=== PATIENT | male | born 1955 | race African-American/Black ===

== ENCOUNTER 2020-05-27 09:45 | Inpatient (IN) | payer OTHER ==
[2020-05-27 10:20] VITALS: BMI 25.7
[2020-05-27] MEDS ORDERED: NICOTINE POLACRILEX 2 MG GUM BC PRN (15:07)
[2020-05-27] MEDS ORDERED: LOPERAMIDE HCL 2 MG CAPSULE PO PRN (15:07)
[2020-05-27] MEDS ORDERED: MAGNESIUM HYDROX 2400MG/30ML ORAL SUSPENSION 30 ML CUP PO PRN (15:07)
[2020-05-27] MEDS ORDERED: P-EPHED 60MG/TRIPROLIDI 2.5MG TABLET PO PRN (15:07)
[2020-05-27] MEDS ORDERED: guaiFENesin 200 MG/10 ML 10 ML UNIT-DOSE CUPS PO PRN (15:07)
[2020-05-27] MEDS ORDERED: MAGNESIUM CITRATE 300 ML BOTTLE PO PRN (15:07)
[2020-05-27] MEDS ORDERED: ACETAMINOPHEN 325 MG TABLET (FP) PO PRN (15:07)
[2020-05-27 17:03] LABS: HEMATOCRIT 42.2 % (35.4-49); MCH 29.3 pg (25.7-33.7); MCHC 33.1 g/dl (32.0-35.9); MEAN CELL VOLUME 88.7 fl (80-96); MEAN PLT VOLUME 7.6 fl (7.5-11.1); PLATELET COUNT 249 K/MM3 (134-434); RBC 4.76 M/mm3 (4.00-5.60); RDW 15.3 % (11.9-15.9); WHITE BLOOD COUNT 4.8 K/mm3 (4.0-10.0)
[2020-05-27 17:07] LABS: POTASSIUM 4.3 mmol/L (3.5-5.1)
[2020-05-27 17:10] LABS: ALBUMIN 3.8 g/dl (3.4-5.0); CALCIUM 9.4 mg/dL (8.5-10.1)
[2020-05-27 17:11] LABS: BLOOD UREA NITROGEN 13.6 mg/dL (7-18)
[2020-05-27 17:15] LABS: BILIRUBIN,TOTAL 1.1 mg/dL (0.2-1); TOT PROT 7.7 g/dl (6.4-8.2)
[2020-05-27 18:12] LABS: SICKLE CELL SCREEN NEGATIVE (NEGATIVE)
[2020-05-27] MEDS: hydrOXYzine PAMOATE 25 MG CAPSULE (FP) PO SCH ×2 (19:15→21:30)
[2020-05-27] MEDS: levETIRAcetam 500 MG TABLET (FP) PO SCH (21:30)
[2020-05-27] MEDS: MELATONIN 5 MG TABLETS PO SCH (21:30)
[2020-05-27] MEDS: THIAMINE HCL 100 MG TABLET (FP) PO SCH (21:30)
[2020-05-28] MEDS: hydrOXYzine PAMOATE 25 MG CAPSULE (FP) PO SCH ×3 (06:23→14:39)
[2020-05-28] MEDS: NICOTINE 14 MG/24 HOURS TOPICAL PATCH TD SCH (10:03)
[2020-05-28] MEDS: levETIRAcetam 500 MG TABLET (FP) PO SCH ×2 (10:03→21:48)
[2020-05-28] MEDS: PRENATAL VITAMINS W/ FOLIC ACID TABLET (FP) PO SCH (10:03)
[2020-05-28] MEDS: amLODIPine BESYLATE 10 MG TABLET (FP) PO SCH (10:03)
[2020-05-28] MEDS: MELATONIN 5 MG TABLETS PO SCH (21:46)
[2020-05-28] MEDS: THIAMINE HCL 100 MG TABLET (FP) PO SCH (21:46)
[2020-05-28] MEDS: hydrOXYzine PAMOATE 25 MG CAPSULE (FP) PO PRN (21:47)
[2020-05-29] MEDS: PRENATAL VITAMINS W/ FOLIC ACID TABLET (FP) PO SCH (10:40)
[2020-05-29] MEDS: NICOTINE 14 MG/24 HOURS TOPICAL PATCH TD SCH (10:40)
[2020-05-29] MEDS: levETIRAcetam 500 MG TABLET (FP) PO SCH ×2 (10:40→22:04)
[2020-05-29] MEDS: amLODIPine BESYLATE 10 MG TABLET (FP) PO SCH (10:40)
[2020-05-29] MEDS: IBUPROFEN 400 MG TABLET (FP) PO PRN (10:43)
[2020-05-29] MEDS: hydrOXYzine PAMOATE 25 MG CAPSULE (FP) PO PRN ×2 (10:45→22:04)
[2020-05-29] MEDS ORDERED: ONDANSETRON *ODT* 4 MG TABLET SL ONE (15:01)
[2020-05-29] MEDS ORDERED: TRIMETHOBENZAMIDE HCL 200MG/2ML INJ IM ONE (15:49)
[2020-05-29] MEDS: cloNIDine HCL 0.1 MG TABLET PO PRN (17:41)
[2020-05-29] MEDS: METHOCARBAMOL 500 MG TABLET PO PRN ×2 (17:41→22:04)
[2020-05-29] MEDS: MELATONIN 5 MG TABLETS PO SCH (22:04)
[2020-05-29] MEDS: THIAMINE HCL 100 MG TABLET (FP) PO SCH (22:04)
[2020-05-30] MEDS: cloNIDine HCL 0.1 MG TABLET PO PRN ×2 (07:19→21:59)
[2020-05-30] MEDS: levETIRAcetam 500 MG TABLET (FP) PO SCH ×2 (10:30→21:59)
[2020-05-30] MEDS: PRENATAL VITAMINS W/ FOLIC ACID TABLET (FP) PO SCH (10:30)
[2020-05-30] MEDS: amLODIPine BESYLATE 10 MG TABLET (FP) PO SCH (10:30)
[2020-05-30] MEDS: IBUPROFEN 400 MG TABLET (FP) PO PRN (10:31)
[2020-05-30] MEDS: hydrOXYzine PAMOATE 25 MG CAPSULE (FP) PO PRN (10:32)
[2020-05-30] MEDS: METHOCARBAMOL 500 MG TABLET PO PRN ×2 (10:32→21:59)
[2020-05-30] MEDS: NICOTINE 14 MG/24 HOURS TOPICAL PATCH TD SCH (10:32)
[2020-05-30 12:13] LABS: POTASSIUM 3.7 mmol/L (3.5-5.1)
[2020-05-30 12:18] LABS: ALBUMIN 3.9 g/dl (3.4-5.0); CALCIUM 9.9 mg/dL (8.5-10.1)
[2020-05-30 12:21] LABS: CREATININE 0.9 mg/dL (0.55-1.3)
[2020-05-30 12:24] LABS: BILIRUBIN,TOTAL 1.2 mg/dL (0.2-1); TOT PROT 8.8 g/dl (6.4-8.2)
[2020-05-30] MEDS ORDERED: ONDANSETRON *ODT* 4 MG TABLET SL PRN (12:54)
[2020-05-30] MEDS: hydrOXYzine PAMOATE 50 MG CAPSULE (FP) PO PRN (21:59)
[2020-05-30] MEDS: THIAMINE HCL 100 MG TABLET (FP) PO SCH (21:59)
[2020-05-30] MEDS: MELATONIN 5 MG TABLETS PO SCH (21:59)
[2020-05-31] MEDS: PRENATAL VITAMINS W/ FOLIC ACID TABLET (FP) PO SCH (10:58)
[2020-05-31] MEDS: NICOTINE 14 MG/24 HOURS TOPICAL PATCH TD SCH (10:58)
[2020-05-31] MEDS: amLODIPine BESYLATE 10 MG TABLET (FP) PO SCH (10:58)
[2020-05-31] MEDS: levETIRAcetam 500 MG TABLET (FP) PO SCH ×2 (10:59→21:28)
[2020-05-31] MEDS: MELATONIN 5 MG TABLETS PO SCH (21:27)
[2020-05-31] MEDS: METHOCARBAMOL 500 MG TABLET PO PRN (21:28)
[2020-05-31] MEDS: hydrOXYzine PAMOATE 50 MG CAPSULE (FP) PO PRN (21:28)
[2020-05-31] MEDS: cloNIDine HCL 0.1 MG TABLET PO PRN (21:28)
[2020-05-31] MEDS: THIAMINE HCL 100 MG TABLET (FP) PO SCH (21:28)
[2020-05-31 23:38] LABS: URINE APPEARANCE CLEAR; URINE BILIRUBIN NEGATIVE (NEGATIVE); URINE COLOR DK YELLOW; URINE GLUCOSE (UA) NEGATIVE (NEGATIVE); URINE KETONE NEGATIVE (NEGATIVE); URINE LEUK ESTERASE NEGATIVE (NEGATIVE); URINE NITRITE NEGATIVE (NEGATIVE); URINE PROTEIN TRACE (NEGATIVE)
[2020-06-01] MEDS: levETIRAcetam 500 MG TABLET (FP) PO SCH ×2 (10:31→21:33)
[2020-06-01] MEDS: NICOTINE 14 MG/24 HOURS TOPICAL PATCH TD SCH (10:31)
[2020-06-01] MEDS: PRENATAL VITAMINS W/ FOLIC ACID TABLET (FP) PO SCH (10:31)
[2020-06-01] MEDS: amLODIPine BESYLATE 10 MG TABLET (FP) PO SCH (10:31)
[2020-06-01] MEDS: cloNIDine HCL 0.1 MG TABLET PO PRN (21:33)
[2020-06-01] MEDS: hydrOXYzine PAMOATE 50 MG CAPSULE (FP) PO PRN (21:33)
[2020-06-01] MEDS: MELATONIN 5 MG TABLETS PO SCH (21:33)
[2020-06-01] MEDS: THIAMINE HCL 100 MG TABLET (FP) PO SCH (21:33)
[2020-06-01] MEDS: METHOCARBAMOL 500 MG TABLET PO PRN (21:33)
[2020-06-02] MEDS: levETIRAcetam 500 MG TABLET (FP) PO SCH ×2 (10:01→21:09)
[2020-06-02] MEDS: amLODIPine BESYLATE 10 MG TABLET (FP) PO SCH (10:01)
[2020-06-02] MEDS: NICOTINE 14 MG/24 HOURS TOPICAL PATCH TD SCH (10:03)
[2020-06-02] MEDS: PRENATAL VITAMINS W/ FOLIC ACID TABLET (FP) PO SCH (10:03)
[2020-06-02] MEDS: THIAMINE HCL 100 MG TABLET (FP) PO SCH (21:09)
[2020-06-02] MEDS: MELATONIN 5 MG TABLETS PO SCH (21:09)
[2020-06-02] MEDS: hydrOXYzine PAMOATE 50 MG CAPSULE (FP) PO PRN (21:10)
[2020-06-03] MEDS: amLODIPine BESYLATE 10 MG TABLET (FP) PO SCH (09:03)
[2020-06-03] MEDS: levETIRAcetam 500 MG TABLET (FP) PO SCH ×2 (09:03→21:33)
[2020-06-03] MEDS: PRENATAL VITAMINS W/ FOLIC ACID TABLET (FP) PO SCH (09:03)
[2020-06-03] MEDS: MAG HYDROX/AL HYDROX/SIMETH 30 ML UNIT-DOSE CUP PO PRN (09:04)
[2020-06-03] MEDS: NICOTINE 14 MG/24 HOURS TOPICAL PATCH TD SCH (09:08)
[2020-06-03] MEDS: hydrOXYzine PAMOATE 50 MG CAPSULE (FP) PO PRN (21:33)
[2020-06-03] MEDS: THIAMINE HCL 100 MG TABLET (FP) PO SCH (21:33)
[2020-06-03] MEDS: MELATONIN 5 MG TABLETS PO SCH (21:33)
[2020-06-03] MEDS: METHOCARBAMOL 500 MG TABLET PO PRN (21:33)
[2020-06-04] MEDS: amLODIPine BESYLATE 10 MG TABLET (FP) PO SCH (09:11)
[2020-06-04] MEDS: MAG HYDROX/AL HYDROX/SIMETH 30 ML UNIT-DOSE CUP PO PRN (09:11)
[2020-06-04] MEDS: NICOTINE 14 MG/24 HOURS TOPICAL PATCH TD SCH (09:11)
[2020-06-04] MEDS: levETIRAcetam 500 MG TABLET (FP) PO SCH ×2 (09:11→21:10)
[2020-06-04] MEDS: PRENATAL VITAMINS W/ FOLIC ACID TABLET (FP) PO SCH (09:11)
[2020-06-04] MEDS: METHOCARBAMOL 500 MG TABLET PO PRN (21:10)
[2020-06-04] MEDS: MELATONIN 5 MG TABLETS PO SCH (21:11)
[2020-06-04] MEDS: THIAMINE HCL 100 MG TABLET (FP) PO SCH (21:11)
[2020-06-04] MEDS: cloNIDine HCL 0.1 MG TABLET PO PRN (21:11)
[2020-06-04] MEDS: hydrOXYzine PAMOATE 50 MG CAPSULE (FP) PO PRN (21:11)
[2020-06-05] MEDS: NICOTINE 14 MG/24 HOURS TOPICAL PATCH TD SCH (09:10)
[2020-06-05] MEDS: levETIRAcetam 500 MG TABLET (FP) PO SCH ×2 (09:10→21:27)
[2020-06-05] MEDS: PRENATAL VITAMINS W/ FOLIC ACID TABLET (FP) PO SCH (09:11)
[2020-06-05] MEDS: amLODIPine BESYLATE 10 MG TABLET (FP) PO SCH (09:11)
[2020-06-05] MEDS: THIAMINE HCL 100 MG TABLET (FP) PO SCH (21:27)
[2020-06-05] MEDS: METHOCARBAMOL 500 MG TABLET PO PRN (21:27)
[2020-06-05] MEDS: hydrOXYzine PAMOATE 50 MG CAPSULE (FP) PO PRN (21:27)
[2020-06-05] MEDS: cloNIDine HCL 0.1 MG TABLET PO PRN (21:27)
[2020-06-05] MEDS: MELATONIN 5 MG TABLETS PO SCH (21:28)
[2020-06-06] MEDS: PRENATAL VITAMINS W/ FOLIC ACID TABLET (FP) PO SCH (10:08)
[2020-06-06] MEDS: amLODIPine BESYLATE 10 MG TABLET (FP) PO SCH (10:08)
[2020-06-06] MEDS: levETIRAcetam 500 MG TABLET (FP) PO SCH ×2 (10:08→21:49)
[2020-06-06] MEDS: NICOTINE 14 MG/24 HOURS TOPICAL PATCH TD SCH (10:08)
[2020-06-06] MEDS: METHOCARBAMOL 500 MG TABLET PO PRN (21:49)
[2020-06-06] MEDS: THIAMINE HCL 100 MG TABLET (FP) PO SCH (21:49)
[2020-06-06] MEDS: MELATONIN 5 MG TABLETS PO SCH (21:50)
[2020-06-07] MEDS: amLODIPine BESYLATE 10 MG TABLET (FP) PO SCH (09:55)
[2020-06-07] MEDS: NICOTINE 14 MG/24 HOURS TOPICAL PATCH TD SCH (09:55)
[2020-06-07] MEDS: PRENATAL VITAMINS W/ FOLIC ACID TABLET (FP) PO SCH (09:55)
[2020-06-07] MEDS: levETIRAcetam 500 MG TABLET (FP) PO SCH ×2 (09:55→22:09)
[2020-06-07 11:13] LABS: POTASSIUM 4.3 mmol/L (3.5-5.1)
[2020-06-07 11:18] LABS: CALCIUM 8.9 mg/dL (8.5-10.1)
[2020-06-07 11:19] LABS: ALBUMIN 3.3 g/dl (3.4-5.0); BLOOD UREA NITROGEN 11.3 mg/dL (7-18)
[2020-06-07 11:22] LABS: CREATININE 0.9 mg/dL (0.55-1.3)
[2020-06-07 11:23] LABS: BILIRUBIN,TOTAL 0.5 mg/dL (0.2-1)
[2020-06-07 11:39] LABS: TOT PROT 6.7 g/dl (6.4-8.2)
[2020-06-07] MEDS: THIAMINE HCL 100 MG TABLET (FP) PO SCH (22:09)
[2020-06-07] MEDS: MELATONIN 5 MG TABLETS PO SCH (22:09)
[2020-06-08] MEDS: NICOTINE 14 MG/24 HOURS TOPICAL PATCH TD SCH (10:05)
[2020-06-08] MEDS: PRENATAL VITAMINS W/ FOLIC ACID TABLET (FP) PO SCH (10:05)
[2020-06-08] MEDS: amLODIPine BESYLATE 10 MG TABLET (FP) PO SCH (10:06)
[2020-06-08] MEDS: levETIRAcetam 500 MG TABLET (FP) PO SCH ×2 (10:06→21:17)
[2020-06-08] MEDS: MELATONIN 5 MG TABLETS PO SCH (21:17)
[2020-06-08] MEDS: hydrOXYzine PAMOATE 50 MG CAPSULE (FP) PO PRN (21:17)
[2020-06-08] MEDS: METHOCARBAMOL 500 MG TABLET PO PRN (21:17)
[2020-06-08] MEDS: THIAMINE HCL 100 MG TABLET (FP) PO SCH (21:17)
[2020-06-08] MEDS: cloNIDine HCL 0.1 MG TABLET PO PRN (21:17)
[2020-06-09] MEDS: PRENATAL VITAMINS W/ FOLIC ACID TABLET (FP) PO SCH (09:02)
[2020-06-09] MEDS: amLODIPine BESYLATE 10 MG TABLET (FP) PO SCH (09:02)
[2020-06-09] MEDS: levETIRAcetam 500 MG TABLET (FP) PO SCH ×2 (09:02→21:35)
[2020-06-09] MEDS: NICOTINE 14 MG/24 HOURS TOPICAL PATCH TD SCH (09:03)
[2020-06-09] MEDS: THIAMINE HCL 100 MG TABLET (FP) PO SCH (21:35)
[2020-06-09] MEDS: METHOCARBAMOL 500 MG TABLET PO PRN (21:35)
[2020-06-09] MEDS: hydrOXYzine PAMOATE 50 MG CAPSULE (FP) PO PRN (21:35)
[2020-06-09] MEDS: MELATONIN 5 MG TABLETS PO SCH (21:35)
[2020-06-09] MEDS: cloNIDine HCL 0.1 MG TABLET PO PRN (21:35)
[2020-06-10] MEDS: amLODIPine BESYLATE 10 MG TABLET (FP) PO SCH (10:01)
[2020-06-10] MEDS: PRENATAL VITAMINS W/ FOLIC ACID TABLET (FP) PO SCH (10:01)
[2020-06-10] MEDS: NICOTINE 14 MG/24 HOURS TOPICAL PATCH TD SCH (10:01)
[2020-06-10] MEDS: levETIRAcetam 500 MG TABLET (FP) PO SCH ×2 (10:01→21:34)
[2020-06-10] MEDS: THIAMINE HCL 100 MG TABLET (FP) PO SCH (21:33)
[2020-06-10] MEDS: MELATONIN 5 MG TABLETS PO SCH (21:34)
[2020-06-10] MEDS: METHOCARBAMOL 500 MG TABLET PO PRN (21:34)
[2020-06-10] MEDS: hydrOXYzine PAMOATE 50 MG CAPSULE (FP) PO PRN (21:34)
[2020-06-11] MEDS: levETIRAcetam 500 MG TABLET (FP) PO SCH ×2 (09:43→21:14)
[2020-06-11] MEDS: PRENATAL VITAMINS W/ FOLIC ACID TABLET (FP) PO SCH (09:44)
[2020-06-11] MEDS: NICOTINE 14 MG/24 HOURS TOPICAL PATCH TD SCH (09:44)
[2020-06-11] MEDS: amLODIPine BESYLATE 10 MG TABLET (FP) PO SCH (09:44)
[2020-06-11] MEDS: THIAMINE HCL 100 MG TABLET (FP) PO SCH (21:14)
[2020-06-11] MEDS: cloNIDine HCL 0.1 MG TABLET PO PRN (21:14)
[2020-06-11] MEDS: MELATONIN 5 MG TABLETS PO SCH (21:14)
[2020-06-11] MEDS: hydrOXYzine PAMOATE 50 MG CAPSULE (FP) PO PRN (21:14)
[2020-06-11] MEDS: METHOCARBAMOL 500 MG TABLET PO PRN (21:14)
[2020-06-12] MEDS: amLODIPine BESYLATE 10 MG TABLET (FP) PO SCH (10:07)
[2020-06-12] MEDS: PRENATAL VITAMINS W/ FOLIC ACID TABLET (FP) PO SCH (10:07)
[2020-06-12] MEDS: levETIRAcetam 500 MG TABLET (FP) PO SCH ×2 (10:07→21:24)
[2020-06-12] MEDS: NICOTINE 14 MG/24 HOURS TOPICAL PATCH TD SCH (10:07)
[2020-06-12] MEDS: METHOCARBAMOL 500 MG TABLET PO PRN (21:24)
[2020-06-12] MEDS: THIAMINE HCL 100 MG TABLET (FP) PO SCH (21:24)
[2020-06-12] MEDS: MELATONIN 5 MG TABLETS PO SCH (21:24)
[2020-06-13] MEDS: PRENATAL VITAMINS W/ FOLIC ACID TABLET (FP) PO SCH (09:20)
[2020-06-13] MEDS: amLODIPine BESYLATE 10 MG TABLET (FP) PO SCH (09:20)
[2020-06-13] MEDS: levETIRAcetam 500 MG TABLET (FP) PO SCH ×2 (09:20→21:31)
[2020-06-13] MEDS: NICOTINE 14 MG/24 HOURS TOPICAL PATCH TD SCH (09:20)
[2020-06-13] MEDS: hydrOXYzine PAMOATE 50 MG CAPSULE (FP) PO PRN (21:31)
[2020-06-13] MEDS: METHOCARBAMOL 500 MG TABLET PO PRN (21:31)
[2020-06-13] MEDS: THIAMINE HCL 100 MG TABLET (FP) PO SCH (21:31)
[2020-06-13] MEDS: MELATONIN 5 MG TABLETS PO SCH (21:31)
[2020-06-14] MEDS: PRENATAL VITAMINS W/ FOLIC ACID TABLET (FP) PO SCH (09:37)
[2020-06-14] MEDS: levETIRAcetam 500 MG TABLET (FP) PO SCH ×2 (09:37→21:35)
[2020-06-14] MEDS: amLODIPine BESYLATE 10 MG TABLET (FP) PO SCH (09:37)
[2020-06-14] MEDS: NICOTINE 14 MG/24 HOURS TOPICAL PATCH TD SCH (09:37)
[2020-06-14] MEDS: THIAMINE HCL 100 MG TABLET (FP) PO SCH (21:35)
[2020-06-14] MEDS: METHOCARBAMOL 500 MG TABLET PO PRN (21:35)
[2020-06-14] MEDS: hydrOXYzine PAMOATE 50 MG CAPSULE (FP) PO PRN (21:35)
[2020-06-14] MEDS: MELATONIN 5 MG TABLETS PO SCH (21:35)
[2020-06-15] MEDS: amLODIPine BESYLATE 10 MG TABLET (FP) PO SCH (10:07)
[2020-06-15] MEDS: PRENATAL VITAMINS W/ FOLIC ACID TABLET (FP) PO SCH (10:07)
[2020-06-15] MEDS: NICOTINE 14 MG/24 HOURS TOPICAL PATCH TD SCH (10:07)
[2020-06-15] MEDS: levETIRAcetam 500 MG TABLET (FP) PO SCH ×2 (10:07→21:12)
[2020-06-15] MEDS: THIAMINE HCL 100 MG TABLET (FP) PO SCH (21:12)
[2020-06-15] MEDS: MELATONIN 5 MG TABLETS PO SCH (21:12)
[2020-06-15] MEDS: hydrOXYzine PAMOATE 50 MG CAPSULE (FP) PO PRN (21:12)
[2020-06-15] MEDS: METHOCARBAMOL 500 MG TABLET PO PRN (21:12)
[2020-06-16] MEDS: PRENATAL VITAMINS W/ FOLIC ACID TABLET (FP) PO SCH (10:05)
[2020-06-16] MEDS: amLODIPine BESYLATE 10 MG TABLET (FP) PO SCH (10:05)
[2020-06-16] MEDS: NICOTINE 14 MG/24 HOURS TOPICAL PATCH TD SCH (10:05)
[2020-06-16] MEDS: levETIRAcetam 500 MG TABLET (FP) PO SCH ×2 (10:05→21:46)
[2020-06-16] MEDS: MELATONIN 5 MG TABLETS PO SCH (21:46)
[2020-06-16] MEDS: THIAMINE HCL 100 MG TABLET (FP) PO SCH (21:46)
[2020-06-17] MEDS: levETIRAcetam 500 MG TABLET (FP) PO SCH ×2 (10:00→21:05)
[2020-06-17] MEDS: NICOTINE 14 MG/24 HOURS TOPICAL PATCH TD SCH (10:00)
[2020-06-17] MEDS: amLODIPine BESYLATE 10 MG TABLET (FP) PO SCH (10:00)
[2020-06-17] MEDS: PRENATAL VITAMINS W/ FOLIC ACID TABLET (FP) PO SCH (10:00)
[2020-06-17] MEDS: THIAMINE HCL 100 MG TABLET (FP) PO SCH (21:05)
[2020-06-17] MEDS: MELATONIN 5 MG TABLETS PO SCH (21:05)
[2020-06-17] MEDS: hydrOXYzine PAMOATE 50 MG CAPSULE (FP) PO PRN (21:05)
[2020-06-17] MEDS: METHOCARBAMOL 500 MG TABLET PO PRN (21:05)
[2020-06-18] MEDS: NICOTINE 14 MG/24 HOURS TOPICAL PATCH TD SCH (10:01)
[2020-06-18] MEDS: levETIRAcetam 500 MG TABLET (FP) PO SCH ×2 (10:01→21:44)
[2020-06-18] MEDS: amLODIPine BESYLATE 10 MG TABLET (FP) PO SCH (10:01)
[2020-06-18] MEDS: PRENATAL VITAMINS W/ FOLIC ACID TABLET (FP) PO SCH (10:01)
[2020-06-18] MEDS: METHOCARBAMOL 500 MG TABLET PO PRN (21:44)
[2020-06-18] MEDS: THIAMINE HCL 100 MG TABLET (FP) PO SCH (21:44)
[2020-06-18] MEDS: hydrOXYzine PAMOATE 50 MG CAPSULE (FP) PO PRN (21:44)
[2020-06-18] MEDS: MELATONIN 5 MG TABLETS PO SCH (21:44)
[2020-06-19] MEDS: NICOTINE 14 MG/24 HOURS TOPICAL PATCH TD SCH (10:22)
[2020-06-19] MEDS: amLODIPine BESYLATE 10 MG TABLET (FP) PO SCH (10:22)
[2020-06-19] MEDS: PRENATAL VITAMINS W/ FOLIC ACID TABLET (FP) PO SCH (10:22)
[2020-06-19] MEDS: levETIRAcetam 500 MG TABLET (FP) PO SCH ×2 (10:22→21:26)
[2020-06-19] MEDS: hydrOXYzine PAMOATE 50 MG CAPSULE (FP) PO PRN (21:26)
[2020-06-19] MEDS: THIAMINE HCL 100 MG TABLET (FP) PO SCH (21:26)
[2020-06-19] MEDS: MELATONIN 5 MG TABLETS PO SCH (21:26)
[2020-06-19] MEDS: METHOCARBAMOL 500 MG TABLET PO PRN (21:26)
[2020-06-20] MEDS: PRENATAL VITAMINS W/ FOLIC ACID TABLET (FP) PO SCH (09:15)
[2020-06-20] MEDS: NICOTINE 14 MG/24 HOURS TOPICAL PATCH TD SCH (09:16)
[2020-06-20] MEDS: levETIRAcetam 500 MG TABLET (FP) PO SCH ×2 (09:16→21:56)
[2020-06-20] MEDS: amLODIPine BESYLATE 10 MG TABLET (FP) PO SCH (09:17)
[2020-06-20] MEDS: MELATONIN 5 MG TABLETS PO SCH (21:56)
[2020-06-20] MEDS: THIAMINE HCL 100 MG TABLET (FP) PO SCH (21:56)
[2020-06-21] MEDS: PRENATAL VITAMINS W/ FOLIC ACID TABLET (FP) PO SCH (10:09)
[2020-06-21] MEDS: amLODIPine BESYLATE 10 MG TABLET (FP) PO SCH (10:10)
[2020-06-21] MEDS: NICOTINE 14 MG/24 HOURS TOPICAL PATCH TD SCH (10:10)
[2020-06-21] MEDS: levETIRAcetam 500 MG TABLET (FP) PO SCH ×2 (10:10→21:52)
[2020-06-21] MEDS: MELATONIN 5 MG TABLETS PO SCH (21:53)
[2020-06-21] MEDS: THIAMINE HCL 100 MG TABLET (FP) PO SCH (21:53)
[2020-06-22] MEDS: PRENATAL VITAMINS W/ FOLIC ACID TABLET (FP) PO SCH (10:05)
[2020-06-22] MEDS: levETIRAcetam 500 MG TABLET (FP) PO SCH ×2 (10:05→21:13)
[2020-06-22] MEDS: amLODIPine BESYLATE 10 MG TABLET (FP) PO SCH (10:05)
[2020-06-22] MEDS: NICOTINE 14 MG/24 HOURS TOPICAL PATCH TD SCH (10:05)
[2020-06-22] MEDS: THIAMINE HCL 100 MG TABLET (FP) PO SCH (21:13)
[2020-06-22] MEDS: MELATONIN 5 MG TABLETS PO SCH (21:13)
[2020-06-22] MEDS: hydrOXYzine PAMOATE 50 MG CAPSULE (FP) PO PRN (21:13)
[2020-06-22] MEDS: METHOCARBAMOL 500 MG TABLET PO PRN (21:13)
[2020-06-23 06:59] VITALS: TEMP 98
[2020-06-23] MEDS: NICOTINE 14 MG/24 HOURS TOPICAL PATCH TD SCH (10:17)
[2020-06-23] MEDS: PRENATAL VITAMINS W/ FOLIC ACID TABLET (FP) PO SCH (10:17)
[2020-06-23] MEDS: levETIRAcetam 500 MG TABLET (FP) PO SCH ×2 (10:17→21:40)
[2020-06-23] MEDS: amLODIPine BESYLATE 10 MG TABLET (FP) PO SCH (10:17)
[2020-06-23] MEDS: hydrOXYzine PAMOATE 50 MG CAPSULE (FP) PO PRN (21:40)
[2020-06-23] MEDS: METHOCARBAMOL 500 MG TABLET PO PRN (21:40)
[2020-06-23] MEDS: THIAMINE HCL 100 MG TABLET (FP) PO SCH (21:40)
[2020-06-23] MEDS: MELATONIN 5 MG TABLETS PO SCH (21:40)
[2020-06-24] MEDS: PRENATAL VITAMINS W/ FOLIC ACID TABLET (FP) PO SCH (09:27)
[2020-06-24] MEDS: levETIRAcetam 500 MG TABLET (FP) PO SCH (09:27)
[2020-06-24] MEDS: amLODIPine BESYLATE 10 MG TABLET (FP) PO SCH (09:27)
[2020-06-24] MEDS: NICOTINE 14 MG/24 HOURS TOPICAL PATCH TD SCH (09:27)
[2020-06-24 11:08] VITALS: BP 144/79; PULSE 80
== END 2020-06-24 10:30 | disposition home or self-care (01) | DRG 772 ==
LOC: YASAS 09:45 → Y5N 15:15
PROVIDERS: ADMIT Allergy & Immunology; ATTEND Allergy & Immunology
PROC: HZ42ZZZ Group Counseling for Substance Abuse Treatment, Cognitive-Behavioral (ICD-10-PCS; principal; 2020-05-27)
DX: F11.20 Opioid dependence, uncomplicated (principal); F17.210 Nicotine dependence, cigarettes, uncomplicated; G40.909 Epilepsy, unspecified, not intractable, without status epilepticus; I10 Essential (primary) hypertension; R74.8 Abnormal levels of other serum enzymes
CPT/HCPCS: 36415; 80053; 80177; 81003; 82962; 85027; 85660; 86780; 93005; 93010; C9803; J0735; Q0162; U0003